=== PATIENT | male | born 1990 | race Caucasian/White ===

== ENCOUNTER 2017-02-18 11:06 | Emergency (ER) | payer OTHER ==
[~2017-02-18] VITALS: Ht 170.2 cm; Wt 82.0 kg
[2017-02-18] MEDS ORDERED: PLEASE ENTER HEIGHT AND WEIGHT MC SCH (11:30)
[2017-02-18] MEDS ORDERED: SODIUM CHLORIDE FLUSH 10ML SYR IVF ONE (11:30)
[2017-02-18] MEDS ORDERED: PLEASE ENTER ALLERGIES MC SCH (11:30)
[2017-02-18] MEDS ORDERED: SODIUM CHLORIDE 0.9% 1,000ML IVBOLUS ONE (11:30)
[2017-02-18 12:02] LABS: MEAN CORPUSCULAR HGB CONC 33.2 g/dL (33.2-36.2); MEAN CORPUSCULAR VOLUME 81.5 fL (81-97); MEAN PLATELET VOLUME 7.3 fL (7.4-10.4); PLATELET COUNT 388 x10^3/uL (130-400); RED BLOOD COUNT 4.36 x10^6/uL (4.38-5.82); RED CELL DISTRIBUTION WIDTH 13.2 % (9.4-14.8)
[2017-02-18 12:07] LABS: INTERNATIONAL NORMALIZED RATIO 1.09 (0.93-1.1); PROTHROMBIN TIME 11.3 Seconds (9.6-11.5)
[2017-02-18 12:11] LABS: ALANINE AMINOTRANSFERASE 15 U/L (12-78); ALBUMIN 1.8 g/dL (3.4-5.0); ANION GAP 9 mmol/L (5-15); CALCIUM 7.4 mg/dL (8.5-10.1); CHLORIDE 100 mmol/L (98-107)
[2017-02-18 12:13] LABS: ALKALINE PHOSPHATASE 50 U/L (45-117); BILIRUBIN,TOTAL 0.8 mg/dL (0.2-1.0); TOTAL PROTEIN 5.9 g/dL (6.4-8.2)
[2017-02-18 12:14] LABS: MD YES
[2017-02-18 12:21] LABS: BAND#(MANUAL) 3.69 x10^3/uL; BANDS%(MANUAL) 30 % (0-7); EOS#(MANUAL) 0.74 x10^3/uL (0.0-0.4); EOS% (MANUAL) 6 % (1-7); LYMPHS% (MANUAL) 26 % (22-44); MONOS#(MANUAL) 0.98 x10^3/uL (0.3-2.7); MONOS% (MANUAL) 8 % (2-9); REACTIVE LYMPHS # (MANUAL) 0.25 x10^3/uL (0-0); REACTIVE LYMPHS % (MANUAL) 2 % (0-0); SEG#(MANUAL) 3.44 x10^3/uL (1.8-6.8); SEGS% (MANUAL) 28 % (42-75)
[2017-02-18 12:22] LABS: <PLATELET ESTIMATE> ADEQUATE; <PLT MORPHOLOGY> NORMAL PLT MORPH; MICROCYTOSIS 1+; TOXIC GRAN 1+
[2017-02-18 12:59] LABS: MICROSCOPIC INDICATED
[2017-02-18 13:09] LABS: CULTURE INDICATED? NO
[2017-02-18] MEDS ORDERED: OMNIPAQUE 350 MG/ML, 100ML BOTTLE ONE (14:53)
[2017-02-18] MEDS ORDERED: metroNIDAZOLE 500 MG TABLET PO ONE (16:30)
[2017-02-18] MEDS ORDERED: CIPROFLOXACIN 500 MG TABLET PO ONE (16:30)
[2017-02-18] MEDS ORDERED: metroNIDAZOLE 500 MG TABLET ONE (16:46)
[2017-02-18] MEDS ORDERED: CIPROFLOXACIN 500 MG TABLET ONE (16:46)
[2017-02-18 16:53] VITALS: BP 112/76
== END 2017-02-18 16:55 | disposition home or self-care (01) ==
LOC: ED 11:12
DX: K51.011 Ulcerative (chronic) pancolitis with rectal bleeding (principal); E03.9 Hypothyroidism, unspecified
CPT/HCPCS: 36415; 74177; 80053; 81001; 83690; 85025; 85610; 85730; 96360; 96361; 99285; J7030; Q9967